=== PATIENT | female | born 1960 | race Caucasian/White ===

== ENCOUNTER → 2016-09-02 | Outpatient (CLI) | payer OTHER ==
[~2016-09-02] MED LIST: FLEXERIL5 MG PO; METFORMIN HCL500 MG PO; MOTRIN800 MG PO; TIZANIDINE HCL4 MG PO; TOLTERODINE TART4 M1 PO; VALIUM5 MG PO
[2016-09-02 14:12] LABS: HEMOGLOBIN A1c 5.6 % (4.8-5.6)
[2016-09-02 14:17] LABS: BUN 13 mg/dl (7-24); CARBON DIOXIDE 27 mmol/L (21-32); CHLORIDE 104 mmol/L (98-107); CHOLESTEROL 159 mg/dL (<200); EST GLOM FILT AFRICAN AMERICAN > 60 ml/min; GLUCOSE 106 mg/dL (65-99); HDL CHOLESTEROL 49 mg/dl (40-60); LDL CHOLESTEROL 76 mg/dL (9-159); POTASSIUM 4.5 mmol/L (3.5-5.1); SODIUM 138 mmol/L (136-145); TRIGLYCERIDES 171 mg/dl (<150); VLDL CHOLESTEROL 34 mg/dL (6-40)
== END | disposition home or self-care (01) ==
LOC: LAB 13:28
PROVIDERS: Family Medicine
DX: R73.09 Other abnormal glucose (principal); R79.9 Abnormal finding of blood chemistry, unspecified

== ENCOUNTER → 2017-06-22 | Outpatient (CLI) | payer OTHER ==
[2017-06-22 18:45] LABS: BUN 10 mg/dl (7-24); CHLORIDE 103 mmol/L (98-107); CREATININE 0.85 mg/dL (0.55-1.02); POTASSIUM 4.2 mmol/L (3.5-5.1); SODIUM 140 mmol/L (136-145)
== END | disposition home or self-care (01) ==
LOC: LAB 18:18
PROVIDERS: Family Medicine
DX: R73.09 Other abnormal glucose (principal)

== ENCOUNTER 2018-03-21 07:19 | Inpatient (IN) | payer OTHER ==
[~2018-03-21] VITALS: Ht 167.6 cm; Wt 101.7 kg
[2018-03-21] VITALS (7 sets, daily range): BP systolic 121–166; BP diastolic 66–84
--- NOTE | ~2018-03-21 | PR ---
[place], [place] PROGRESS NOTE NAME: MARTI TOTH UNIT #: [id number] ROOM: 517 DOCTOR: KRISSY OSWALD MD BIRTHDATE: [birth year] DOS: 03/25/2018 PULMONARY PROGRESS NOTE SUBJECTIVE: She has continued showing reduction of the respiratory symptoms of coughing, wheezing and shortness of breath. The oxygen requirement has been also noted gradually decreased. There are no symptoms of fever, chills, coughing or sputum expectoration. OBJECTIVE: VITAL SIGNS: Normal temperature, respiratory rate 18, heart rate 66, blood pressure of 160/88. The pulse oxygen saturation on 2 liters nasal cannula 96% saturation. HEENT: Examination shows head was atraumatic. Eyes: No icterus. NECK: Supple. CARDIOVASCULAR: S1, S2 is audible. LUNGS: The patient was noted without any wheeze or crackles at the present time. ABDOMEN: Soft, nontender. Bowel sounds present. EXTREMITIES: The patient without any acute edema. LABORATORY DATA: CBC today was essentially noted as normal. IMPRESSION: 1. The patient with progressive and gradual resolution of acute respiratory failure was noted at present time. 2. Acute bronchiolitis. 3. Acute exacerbation of bronchial asthma. PLAN OF MANAGEMENT: The patient could be considered home discharge if the oxygen saturation stays normal at room air. Outpatient followup could be made for further assessment and pulmonary status in future. Tobacco cessation counseling was done. [place], [place] PROGRESS NOTE NAME: MARTI TOTH UNIT #: [id number] ROOM: 517 DOCTOR: KRISSY OSWALD MD BIRTHDATE: [birth year] KRISSY DUFFY MD CM:PNTRANS [id number] KRISSY YANG MD 03/25/182019 interface
--- NOTE | ~2018-03-21 | EKG ---
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
--- NOTE | ~2018-03-21 | CON ---
[place], [place] REPORT OF CONSULTATION NAME: MARTI TOTH [facility] #: [id number] UNIT #: [id number] ROOM: 517 DOCTOR: CLIVE YANG MDKRISSY BIRTHDATE: [birth year] DOS: 03/22/2018 PULMONARY CONSULTATION, EVALUATION, AND MANAGEMENT REQUESTING PHYSICIAN: Hospitalist Service. REASON FOR CONSULTATION: Ongoing acute respiratory symptoms with abnormal CT scan of the chest findings. HISTORY OF PRESENT ILLNESS: This is a 57-year-old, white female patient, who has been noted with intermittent symptoms since November 2017. The patient has been treated at that time with antibiotic and steroids with reduction of respiratory symptoms, which has been improved, not completely resolved. Later on, the patient developed recent acute symptoms, which were noted progressively worse with chest congestion, coughing, and shortness of breath. The patient's symptoms have been noted progressively worsened. The patient came into the Emergency Room for assessment, noted pulse ox saturation of 85%. She has been started on oxygen supplementation and admitted to the hospital. CT scan of the chest was also done. She has reported reduction of the respiratory symptoms, but still noted ongoing cough, mostly nonproductive, with exertional shortness of breath and wheezing. There were no symptoms of chest pain or hemoptysis reported by the patient. REVIEW OF SYSTEMS: CONSTITUTIONAL: Fatigue and tiredness reported. Denies symptoms of fever or chills. EYES: Denies burning, redness, or tenderness. EARS, NOSE, THROAT: Denies sore throat, hoarseness, otalgia, postnasal drainage or epistaxis. CARDIOVASCULAR: Denies anginal pain, edema, or pain of the lower extremities. GASTROINTESTINAL: Denies dysphagia, nausea, vomiting, or diarrhea. History of chronic obesity without any dysphagia or abnormal weight loss. GENITOURINARY: Denies dysuria or urinary incontinence. MUSCULOSKELETAL: Denies acute joint pain, redness, or tenderness. SKIN: No lesions or rashes. Remaining systems were reviewed, they were noted all negative. PAST MEDICAL HISTORY: Reported as: 1. General anxiety disorder. 2. Essential hypertension. 3. Metabolic syndrome. 4. Prediabetes. 5. Chronic tobacco use. 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 Noted tobacco use, a pack of cigarettes per day, recently decreased the tobacco use to 5 cigarettes a day. Denies history of alcohol use or illicit drugs. [place], [place] REPORT OF CONSULTATION NAME: MARTI TOTH UNIT #: [id number] ROOM: 517 DOCTOR: KRISSY OSWALD MD BIRTHDATE: [birth year] FAMILY HISTORY: The patient's father from complication related to lung cancer at 60 years old. Mother is living at 75 years old with history of Parkinsonism. HOME MEDICATIONS: Listed as Colace, Lexapro, lisinopril, melatonin, metformin, and multivitamin. DRUG ALLERGIES: NOTED ALLERGIC TO: 1. IODINE. 2. PROCHLORPERAZINE. CURRENT MEDICATIONS: Current medications administered at this hospitalization were noted as use of Lovenox for DVT prophylaxis, Mucinex, Solu-Medrol 60 mg b.i.d., Lexapro, lisinopril, metformin, DuoNeb q. 4 hours, Zithromax and Rocephin. PHYSICAL EXAMINATION: GENERAL: A 57-year-old female, currently sitting on the bed without any acute distress. Height recorded as 5 feet 5 inches, weight 224 pounds, BMI 36. VITAL SIGNS: Normal temperature, respiratory rate 16-22, heart rate 67-92, blood pressure 121/84 to 148/71 recorded. Pulse ox saturation currently noted on 4 liters nasal cannula as 93% saturation. HEENT: Head was atraumatic. Eyes nonicterus. NECK: Supple. Chronic obesity findings. Decreased posterior pharyngeal space. High tongue base with crowding soft tissue structures. CARDIOVASCULAR: S1 and S2 audible. LUNGS: Moderate reduction in the breath sounds with mild faint expiratory wheezing. There were no crackles. ABDOMEN: Soft and obese. EXTREMITIES: The patient was noted without abnormal edema, clubbing or cyanosis. MUSCULOSKELETAL: Without any acute deformities. CENTRAL NERVOUS SYSTEM: Cranial nerves 2-12 intact. SKIN: Without lesions or rashes. LABORATORY AND DIAGNOSTIC DATA: CBC that was done on 03/21/2018, WBC count normal, hemoglobin 16.8, hematocrit 48, platelet count was normal. Lactic acid was 1.5 yesterday. PT and PTT yesterday were noted as normal. CMP done yesterday with normal BUN and creatinine, glucose 144. CBC this morning is noted as normal CBC. The BMP that was done yesterday, glucose 187, BUN and creatinine were normal. Chest x-ray one-view, which was done in the Emergency Room does not show any gross pulmonary infiltration or other abnormality. CT scan without contrast that was completed yesterday as well was reviewed, shows evidence of centrilobular nodules, tree-in-bud opacity noted predominantly in the right upper and the right lower lobe and some opacity noted in the left upper lobe as well. There was no abnormal lymphadenopathy. The mediastinal structure assessment is limited because of lack of IV contrast. IMPRESSION: 1. The patient has been currently admitted to the hospital. The patient seems [place], [place] REPORT OF CONSULTATION NAME: MARTI TOTH UNIT #: [id number] ROOM: 517 DOCTOR: KRISSY OSWALD MD BIRTHDATE: [birth year] to have acute exacerbation of chronic obstructive pulmonary disease or possible bronchial asthma exacerbation onset with acute bronchiolitis. Currently, tree-in-bud opacity is suggestive of pulmonary infection, whether viral or bacterial at this time is unknown. 2. The patient with acute hypoxic respiratory failure secondary to above. 3. Chronic long-term tobacco use. 4. Moderate obesity history as well. 5. History of essential hypertension. 6. General anxiety disorder. PLAN OF MANAGEMENT: Agree with use of the current antibiotic for atypical coverage with Zithromax. Continue Rocephin and steroids. Titrate oxygen supplementation to maintain pulse ox 92% or greater. Continue use of bronchodilators in nebulized formulation. Respiratory virus panel will be ordered as well. Monitor respiratory status closely. Followup CT scan of the chest would be advised after resolution of current symptoms in about 3 months to document the resolution of current pulmonary abnormality completely. Counseling about tobacco cessation was done with the patient as well. Other additional treatment changes will be requested based on progression of the illness. Nicotine replacement patches will be ordered in case of nicotine withdrawal. At this time, the patient states that she is comfortable and would not require any nicotine replacement therapy. Assessment and management discussed with Dr. Nicholas Neal as well today. Thank you for allowing me to participate in the care of this patient. KRISSY DUFFY MD CM:CONSTR:REPORT OF CONSULTATION 1509 03/30/18 1017 interface
--- NOTE | ~2018-03-21 | PR ---
[place], [place] PROGRESS NOTE NAME: MARTI TOTH UNIT #: [id number] ROOM: 517 DOCTOR: KRISSY OSWALD MD BIRTHDATE: [birth year] DOS: 03/23/2018 SUBJECTIVE: The patient reported reduction in symptoms of shortness of breath and cough for the last 24 hours. Denies wheezing. There were no symptoms of chest pain or hemoptysis. The patient denies symptoms of nausea, vomiting, diarrhea, abdominal pain, hematemesis, melena, or headache. Denies symptoms of pain of the lower extremity. Remaining of reviewed and they were noted all negative. OBJECTIVE: VITAL SIGNS: For the patient, which have been recorded showed the temperature noted as a normal. The respiratory rate recorded at 20, heart rate 65, blood pressure 135/53-140/53. Pulse oxygen saturation on nasal cannula was 95% saturation. HEENT: Examination shows head was atraumatic. Eyes nonicterus. NECK: Supple. CARDIOVASCULAR: S1, S2 audible. LUNGS: Without any crackles this morning. Wheezing was noted decreased, but not completely resolved. ABDOMEN: Soft and obese. EXTREMITIES: No acute edema. MUSCULOSKELETAL: Without acute deformities. Cranial nerves 2-12 intact. IMPRESSION: 1. Acute exacerbation of chronic obstructive pulmonary disease/bronchial asthma. 2. Acute bronchiolitis. 3. Chronic obesity. 4. Acute hypoxic respiratory failure secondary to acute exacerbation of chronic obstructive pulmonary disease/bronchial asthma. PLAN OF THERAPY: Change the Solu-Medrol dose 40 mg b.i.d. Titrate oxygen supplementation to maintain pulse oxygen saturation 92% or greater. Supportive therapy, plan of management. Upon further reduction in the next 24 to 48 hours. The patient may be considered for discharge. The oxygen desaturation needs to improve prior to consideration for home discharge. [place], [place] PROGRESS NOTE NAME: MARTI TOTH UNIT #: [id number] ROOM: 517 DOCTOR: KRISSY OSWALD MD BIRTHDATE: [birth year] KRISSY DUFFY MD CM:PNTRANS [id number] KRISSY YANG MD 03/23/18 1212 interface
--- NOTE | ~2018-03-21 | PR ---
[place], [place] PROGRESS NOTE NAME: MARTI TOTH UNIT #: [id number] ROOM: 517 DOCTOR: CLIVE YANG MD,KRISSY BIRTHDATE: [birth year] DOS: 03/26/2018 SUBJECTIVE: The patient noted comfortable at this time without any distress, has not been reported symptoms of fever or chills. The coughing, shortness breath, wheezing, and all other symptoms were resolving progressively. OBJECTIVE: VITAL SIGNS: For the patient which has been recorded shows a normal temperature, respiratory rate 20, heart rate 80, blood pressure 145/62. Pulse oxygen saturation recorded at rest on 3 liters nasal cannula 96% saturation. HEENT: Examination shows head was atraumatic. Eyes nonicterus. NECK: Supple. CARDIOVASCULAR: S1, S2 is audible. LUNGS: Noted without any crackles. There was no wheezing. ABDOMEN: Soft, nontender. Bowel sounds present. EXTREMITIES: Noted without any acute edema. IMPRESSION: Resolving acute hypoxic respiratory failure with acute exacerbation of chronic obstructive pulmonary disease and bronchiolitis. PLAN OF MANAGEMENT: No changes in the plan of care. At this time, the patient has been reassessed with the oxygen need and will be discharged home today. Tapering dose of prednisone, oral antibiotic and oxygen will be recommended. Outpatient followup to be assessed. Counseling about tobacco cessation for future was done. KRISSY DUFFY MD CM:PNYESSENIA [id number] KRISSY YANG MD 03/26/18 1519 interface
--- NOTE | ~2018-03-21 | PR ---
[place], [place] PROGRESS NOTE NAME: MARTI TOTH UNIT #: [id number] ROOM: 517 DOCTOR: CLIVE YANG MD,KRISSY BIRTHDATE: [birth year] DOS: 03/24/2018 PULMONARY PROGRESS NOTE SUBJECTIVE: She was still requiring oxygen supplementation, could not be weaned off from oxygen. Respiratory symptoms have been slowly resolving, but not completely resolved. There were no symptoms of chest pain, fever or chills. OBJECTIVE: VITAL SIGNS: For the patient, which have been recorded showed blood pressure 148/58, respiratory rate of 20, heart rate 77, temperature normal. HEENT: Examination shows head was atraumatic. Eyes nonicterus. NECK: Supple. CARDIOVASCULAR: S1, S2 is audible. LUNGS: The patient was noted with moderate expiratory wheezing, no crackles. ABDOMEN: Soft, nontender. Bowel sounds present. EXTREMITIES: No acute change. IMPRESSION: 1. Acute bronchiolitis with acute hypoxic respiratory failure. 2. Acute exacerbation of chronic obstructive pulmonary disease/bronchial asthma. PLAN OF MANAGEMENT: No changes in the plan of care at this time. Continue the steroids, bronchodilator therapy, plan of management as previously ordered. Continue oxygen supplementation, maintain pulse ox saturation 92% or greater. KRISSY DUFFY MD CM:PNTRANS [id number] KRISSY YANG MD 03/25/18 0028 interface
[~2018-03-21 07:19] MED LIST changes: +PREDNISONE50 MG PO; +PROAIR HFA8.5 GM INH
[2018-03-21 07:52] LABS: BASO # 0.1 10*3/uL (0.0-0.1); BASO % 0.7 % (0.0-1.0); EOS # 0.1 10*3/uL (0.0-0.4); EOS % 0.8 % (1.0-4.0); HEMATOCRIT 48.9 % (37.0-47.0); HEMOGLOBIN 16.8 g/dl (12.0-16.0); LYMPH # 1.2 10*3/uL (1.3-4.4); LYMPH % 13.2 % (27.0-41.0); MEAN CELL VOLUME 96.3 fl (81.0-99.0); MEAN CORPUSCULAR HGB 33.1 pg (27.0-31.0); MEAN CORPUSCULAR HGB CONC 34.4 g/dl (33.0-37.0); MEAN PLATELET VOLUME 9.4 fl (9.6-12.3); MONO % 11.4 % (3.0-9.0); NEUT # 6.6 10*3/uL (2.3-7.9); NEUT % 73.6 % (47.0-73.0); PLATELET COUNT AUTOMATED 247 10*3/uL (130-400); RED BLOOD COUNT 5.08 10*6/uL (4.10-5.10); RED CELL DISTRI WIDTH 12.8 % (0-14.5)
[2018-03-21 08:00] LABS: ACT PARTIAL THROMBO TIME 25.9 SECONDS (20.8-31.5)
[2018-03-21 08:07] LABS: ALBUMIN 3.5 gm/dl (3.1-4.5); ALKALINE PHOSPHATASE 91 U/L (45-117); BUN 9 mg/dl (7-24); CHLORIDE 101 mmol/L (98-107); CREATININE 0.87 mg/dL (0.55-1.02); LIPASE 247 U/L (73-393); POTASSIUM 3.7 mmol/L (3.5-5.1); SGOT/AST 24 IU/L (3-35); SGPT/ALT 37 U/L (12-78); SODIUM 136 mmol/L (136-145); TOTAL PROTEIN 7.3 gm/dL (6.4-8.2)
[2018-03-21 08:08] LABS: TROPONIN I < 0.015 ng/ml (<0.045)
--- NOTE | 2018-03-21 10:30 | NUR ---
A 57YO FEMALE, admitted to , under the services of NAV Rankin DO with a diagnosis of RESPIRATORY FAILURE/HYPOXIA/PNEUMONITIS. Chief complaint is SHORTNESS OF BREATH, PRODUCTIVE COUGH AND WHEEZING. Patient arrived via stretcher from ER. Monitor applied. Initial assessment completed. Vital signs taken and recorded. NAV RANKIN DO notified of admission to the unit. Orders received. See assessment for past medical history, medications and allergies. Patient and/or family oriented to unit. [facility] visitation policy reviewed. Clothing/patient valuable form completed. HENOK MATIAS
[2018-03-21] MEDS ORDERED: ZESTRIL10 MG PO (11:21)
[2018-03-21] MEDS ORDERED: MULTIVITAMINS1 EAC6 PO (11:22)
[2018-03-21] MEDS ORDERED: LEXAPRO10 MG PO (11:22)
[2018-03-21] MEDS ORDERED: MELATONIN10 M4 PO (11:23)
[2018-03-21] MEDS ORDERED: COLACE100 MG PO (11:23)
--- NOTE | 2018-03-21 11:23 | NUR ---
MED REC UPDATED USING INFORMATION PROVIDED BY THE PATIENT.
--- NOTE | 2018-03-21 11:44 | NUR ---
DR. DUFFY NOTIFIED OF CONSULT.
[2018-03-22] VITALS: BP 124/54
--- NOTE | 2018-03-22 05:13 | NUR ---
PT IS RESTING IN BED AT THIS TIME WITH NO S/S OF PAIN OR DISTRESS. RESPIRATIONS ARE EASY AND NONLABORED ON 4L NC. BED IS LOCKED AND IN THE LOWEST POSITION. CALL LIGHT IS WITHIN REACH. WILL CONTINUE TO MONITOR PT
[2018-03-22 06:25] LABS: BASO % 0.2 % (0.0-1.0); EOS % 0.2 % (1.0-4.0); HEMATOCRIT 46.9 % (37.0-47.0); HEMOGLOBIN 15.5 g/dl (12.0-16.0); LYMPH # 0.8 10*3/uL (1.3-4.4); LYMPH % 11.7 % (27.0-41.0); MEAN CORPUSCULAR HGB 33.3 pg (27.0-31.0); MEAN PLATELET VOLUME 9.6 fl (9.6-12.3); MONO # 0.4 10*3/uL (0.1-1.0); MONO % 5.6 % (3.0-9.0); NEUT # 5.4 10*3/uL (2.3-7.9); NEUT % 81.2 % (47.0-73.0); PLATELET COUNT AUTOMATED 243 10*3/uL (130-400); RED BLOOD COUNT 4.66 10*6/uL (4.10-5.10); WHITE BLOOD COUNT 6.6 10*3/uL (4.8-10.8)
[2018-03-22 06:35] LABS: BUN 9 mg/dl (7-24); CHLORIDE 107 mmol/L (98-107); POTASSIUM 4.5 mmol/L (3.5-5.1); SODIUM 141 mmol/L (136-145)
[2018-03-22 06:38] LABS: MEAN CELL VOLUME 100.6 fl (81.0-99.0)
[2018-03-22 06:48] LABS: CHOLESTEROL 111 mg/dL (<200); CREATININE 0.69 mg/dL (0.55-1.02); FREE T4 1.06 ng/dl (0.76-1.46); HDL CHOLESTEROL 34 mg/dl (40-60); LDL CHOLESTEROL 59 mg/dL (9-159); PHOSPHOROUS 3.4 mg/dL (2.5-4.9); THYROID STIM HORMONE (HS) 0.231 uIU/ml (0.358-4.75); TRIGLYCERIDES 91 mg/dl (<150); VLDL CHOLESTEROL 18 mg/dL (6-40)
[2018-03-22 08:00] VITALS: BP 132/48
[2018-03-22 08:04] LABS: VITAMIN D, 25-HYDROXY 38.1 ng/mL (30-100)
--- NOTE | 2018-03-22 09:23 | NUR ---
MEDICATED WITH PRN PO TYLENOL FOR CHEST DISCOMFORT D/T COUGHING.
--- NOTE | 2018-03-22 10:29 | NUR ---
PRN PO TYLENOL SOMEWHAT EFFECTIVE, PER PATIENT. HARSH COUGH REMAINS NON-PRODUCTIVE.
--- NOTE | 2018-03-22 11:20 | NUR ---
Interventional Cardiologist in to talk to patient. Patient states lives at [place] with . There are FEW steps in the home. Physician: [facility] Pharmacy: [facility] Home health services: NONE Patient's level of ADLs: INDEPENDENT Patient has working utilities: YES DME: NONE Follow-up physician's appointment after d/c: WILL BE MADE BY HOSPITALIST NURSE DIRECTOR ON DISCHARGE Does patient want to access PORTAL?: NO Discharge plan PT LIVES AT HOME WITH HER AND IS INDEPENDENT IN CARE. DENIES HOME NEEDS ON DISCHARGE. WILL HAVE RIDE HOME ON DISCHARGE. WILL CONTINUE TO FOLLOW.. SOLANGE TENORIO
--- NOTE | 2018-03-22 11:22 | NUR ---
EXTENSIONS FOR HR AND HOSPITALIST NURSE DIRECTOR TAKEN TO PT FOR FMLA PAPERS. PT STATES HER SISTER ALREADY GOT THEM YESTERDAY AND FAXED THEM TO [facility] IN [facility]. WILL CONTINUE TO FOLLOW.
[2018-03-22 12:00] VITALS: BP 132/48
[2018-03-22 16:00] VITALS: BP 153/68
--- NOTE | 2018-03-22 20:11 | NUR ---
Switched patient over to Aerogen vibrating mesh nebulizer. Pt states that she can feel a difference. Breath sounds much improved post treatment compared to normal jet nebulizer.
[2018-03-23] VITALS: BP 140/53
[2018-03-23 08:00] VITALS: BP 135/53
--- NOTE | 2018-03-23 09:33 | NUR ---
PT GIVEN NORCO AND TESSALON PERLES FOR BACK PAIN AND COUGH. WILL MONITOR FOR EFFECTIVENESS. CALL LIGHT IN REACH.
--- NOTE | 2018-03-23 10:44 | NUR ---
PRN MEDICATIONS EFFECTIVE PER PT.
[2018-03-23 12:20] VITALS: BP 137/44
[2018-03-23 15:46] VITALS: BP 170/68
--- NOTE | 2018-03-23 17:14 | NUR ---
PT GIVEN NORCO AND TESSALON PERLES FOR C/O GENERALIZED PAIN AND COUGH. WILL MONITOR FOR EFFECTIVENESS.
[2018-03-23 17:15] VITALS: BP 148/62
--- NOTE | 2018-03-23 18:14 | NUR ---
PRN MEDICATIONS EFFECTIVE PER PT.
[2018-03-23 20:00] VITALS: BP 158/58
[2018-03-24] VITALS: BP 149/50
--- NOTE | 2018-03-24 07:30 | NUR ---
REPORT RECEIVED FROM PM RN, REPORT GIVEN TO STUDENT NURSES AND INSTRUCTOR. STUDENTS AND INSTRUCTOR WILL ASSIST IN CARING FOR PT TODAY. PT AWARE.
[2018-03-24 08:01] VITALS: BP 138/58; BP 1388/58
--- NOTE | 2018-03-24 08:16 | NUR ---
VITAL SIGNS STABLE, A&OX3, EQUAL SINGLE STROKE PREFORMER, HEART SOUNDS NORMAL, SKIN WARM, DRY, PINK, LUNG SOUNDS DIMINISHED THROUGH OUT WITH RIGHT UPPER LOBE I&E WHEEZE, SPO2 94% ON 2L, NONPRODUCTIVE COUGH, BSX4, ABDOMIN SOFT NONTENDER NONDISTENDED, PATIENT ABLE TO AMBULATE ADLIB, MARTELL FRANCOIS SPNRCC
--- NOTE | 2018-03-24 10:28 | NUR ---
CONTINUES TO DENY HOME NEEDS. CAN BE DISCHARGED TO HOME WHEN MEDICALLY STABLE. WILL CONTINUE TO FOLLOW.
--- NOTE | 2018-03-24 11:03 | NUR ---
PATIENT RESTING COMFORTABLY IN CHAIR. ENCOURAGED TO USE INCENTIVE SPIROMETER, PATIENT COMPLIANT, NON PRODUCTIVE COUGH PRESENT, PATIENT TOLERATED WELL MARTELL SNYDER
--- NOTE | 2018-03-24 11:45 | NUR ---
PATIENT RESTING IN CHAIR LUNG. SOUNDS AUSCULTATED DIMINISHED THROUGH OUT WITH I&E WHEEZES NOTED THROUGH OUT. NON PRODUCTIVE COUGH PRESENT. NO C/O OF PAIN AT THIS TIME MARTELL JOSEPHCC
[2018-03-24 11:55] VITALS: BP 148/58
[2018-03-24 16:00] VITALS: BP 147/73
--- NOTE | 2018-03-24 17:41 | NUR ---
PT REQUESTS CURTIS ANDREWS FOR COUGH. MEDICATION ADMINISTERED. WILL MONITOR FOR EFFECTIVENESS. CALL LIGHT IN REACH.
[2018-03-24 20:00] VITALS: BP 135/58
[2018-03-25] VITALS: BP 133/50
[2018-03-25 06:42] LABS: BASO # 0.1 10*3/uL (0.0-0.1); BASO % 0.7 % (0.0-1.0); HEMOGLOBIN 16.1 g/dl (12.0-16.0); LYMPH # 1.5 10*3/uL (1.3-4.4); LYMPH % 14.5 % (27.0-41.0); MEAN CORPUSCULAR HGB 33.2 pg (27.0-31.0); MEAN CORPUSCULAR HGB CONC 33.5 g/dl (33.0-37.0); MEAN PLATELET VOLUME 9.2 fl (9.6-12.3); MONO # 0.6 10*3/uL (0.1-1.0); NEUT # 7.7 10*3/uL (2.3-7.9); NEUT % 76.4 % (47.0-73.0); PLATELET COUNT AUTOMATED 300 10*3/uL (130-400); RED BLOOD COUNT 4.85 10*6/uL (4.10-5.10); RED CELL DISTRI WIDTH 12.8 % (0-14.5); WHITE BLOOD COUNT 10.1 10*3/uL (4.8-10.8)
[2018-03-25 08:00] VITALS: BP 148/119; BP 160/88
[2018-03-25 08:30] VITALS: BP 160/88
--- NOTE | 2018-03-25 08:30 | NUR ---
Notified by PA that pt had elevated bp reading. I rechecked MBP and result of 160/88 obtained.
--- NOTE | 2018-03-25 11:09 | NUR ---
Medicated with norco per prn order for complaints of pain to back and ribs. Pt states that pain is 8/10 when she coughs. States she just had a coughing fit.
[2018-03-25 12:00] VITALS: BP 169/71
--- NOTE | 2018-03-25 12:10 | NUR ---
Pt states that norco was effective for pain.
--- NOTE | 2018-03-25 13:33 | NUR ---
Patient assessed for home O2. At rest on 2 l/m Spo2 93%, HR 76, BP 164/67. At rest with O2 off spo2 ranged from 89%-92%. During ambulation on room air Spo2 86%, HR ranged 102-108 patient required 4 l/m with ambulation to maintain an Spo2 >92%. Post ambulation vitals at rest on 2 l/m Spo2 92% HR 96 BP 147/67. Dr Guzman notified.
[2018-03-25 16:00] VITALS: BP 158/62
[2018-03-25 20:00] VITALS: BP 163/59
--- NOTE | 2018-03-25 22:27 | NUR ---
24 HR chart check completed.
--- NOTE | 2018-03-25 22:49 | NUR ---
PT C/O PAIN R/T COUGHING AND RESTLESSNESS. NORCO AND RESTORIL GIVEN AT THIS TIME. WILL MONITOR FOR EFFECTIVENESS. CALL LIGHT IN REACH.
--- NOTE | 2018-03-25 23:49 | NUR ---
NORJESUS AND RESTORIL EFFECTIVE PER PT.
[2018-03-26] VITALS: BP 149/78
[2018-03-26 08:00] VITALS: BP 145/62
[2018-03-26] MEDS ORDERED: LISINOPRIL20 MG PO (11:06)
[2018-03-26] MEDS ORDERED: MUCINEX ER600 MG PO (11:06)
[2018-03-26] MEDS ORDERED: PREDNISONE10 MG PO (11:06)
[2018-03-26] MEDS ORDERED: AVPAK AZITHROM250 MG PO (11:06)
--- NOTE | 2018-03-26 12:00 | NUR ---
HOME O2 ASSESSMENT: PRE BP: 145/62, HR 90, RR 18, PULSE OX 89% ON ROOM AIR AT REST. AMBULATED PATIENT APPROX 20 FT, PULSE OX DECREASED TO 86% ON ROOM AIR WHILE AMBULATING. PLACED PT ON 3 L/M, SAT >91%-92% WHILE AMBULATING. POST BP: 159/84, HR 91, RR 18, RN AND DR. GUTIERREZ NOTIFIED.
--- NOTE | 2018-03-26 15:00 | NUR ---
Discharge instructions reviewed with patient/family. Patient receptive and verbalizes understanding. Follow-up care arranged. Written instructions given to patient/family.SYDNEY PROVIDED PT WITH HOME O2 AND PT WAS D/C ON 3LNC WITH O2 TANK. ISAIAH ELIAS
[2018-03-27 14:10] LABS: ADENOVIRUS Negative (Negative); INFLUENZA A Negative (Negative); INFLUENZA B Negative (Negative); METAPNEUMOVIRUS Negative (Negative); PARAINFLUENZA 1 Negative (Negative); PARAINFLUENZA 2 Positive (Negative); PARAINFLUENZA 3 Negative (Negative); RHINOVIRUS Negative (Negative); RSV A Negative (Negative); RSV B Positive (Negative)
== END 2018-03-26 15:00 | disposition home or self-care (01) | DRG 871 ==
LOC: ED 07:19 → 5E 09:45 → EDHOLD 09:45 → 5E 09:57
PROVIDERS: Emergency Medicine; Internal Medicine; Internal Medicine Critical Care Medicine; ADMIT Internal Medicine
DX: A41.9 Sepsis, unspecified organism (principal); J18.9 Pneumonia, unspecified organism; J96.01 Acute respiratory failure with hypoxia; E44.0 Moderate protein-calorie malnutrition; J44.1 Chronic obstructive pulmonary disease with (acute) exacerbation; J45.901 Unspecified asthma with (acute) exacerbation; R65.20 Severe sepsis without septic shock; I10 Essential (primary) hypertension; E66.9 Obesity, unspecified; F41.1 Generalized anxiety disorder; F17.210 Nicotine dependence, cigarettes, uncomplicated; D75.1 Secondary polycythemia; E88.81 Metabolic syndrome and other insulin resistance; Z71.6 Tobacco abuse counseling; Z90.710 Acquired absence of both cervix and uterus; Z80.1 Family history of malignant neoplasm of trachea, bronchus and lung; Z83.3 Family history of diabetes mellitus; Z82.0 Family history of epilepsy and other diseases of the nervous system; Z88.8 Allergy status to other drugs, medicaments and biological substances; Z91.041 Radiographic dye allergy status; Z79.899 Other long term (current) drug therapy; Z68.36 Body mass index [BMI] 36.0-36.9, adult

== ENCOUNTER → 2018-05-02 | Outpatient (CLI) | payer OTHER ==
[~2018-05-02] MED LIST changes: +AVPAK AZITHROM250 MG PO; +BUSPAR5 MG PO; +COLACE100 MG PO; +COZAAR25 M1 PO; +CYCLOBENZAPRINE5 M3 PO; +CYMBALTA30 MG PO; +Ipratropium Brom3 ML NEB; +LEVAQUIN750 M1 PO; +LEXAPRO10 MG PO; +LISINOPRIL20 MG PO; +MELATONIN10 M4 PO; +MUCINEX ER600 MG PO; +MUCINEX1200 M1 PO; +MULTIVITAMINS1 EAC6 PO; +PREDNISONE10 MG PO; +ZESTRIL10 MG PO
--- NOTE | ~2018-05-02 | PF ---
[place], [place] PULMONARY FUNCTION TEST NAME: MARTI TOTH UNIT #: [id number] ROOM: DOCTOR: CLIVE YANG MD,KRISSY BIRTHDATE: [birth year] DOS: 05/02/2018 The test was ordered from office completed on 05/02/2018 HISTORY: The patient is a 57-year-old female, height of 66 inches, weight of 225 pounds. The patient reported symptoms of nonproductive cough, rare wheezing. DIAGNOSIS: Bronchial asthma. SPIROMETRY: The FVC is 2.52 liters, 73% predicted value, the FEV1 is of 2.02 liters, 75% predicted value. The ratio of FEV1/FVC 80%. Partial improvement noted post-bronchodilator, but did not meet the criteria of improvement ____ to be clinical significant improvement. Flow volume loop was suggestive of obstructive airway pattern. The lung volumes, thoracic gas volume recorded as 71%, residual volume of 102%. ERV noted 1% not accurate. There is total lung capacity 86%. The patient's lung diffusion 77%. The patient's airway resistance and passive conductance normal. FINAL IMPRESSION: Mild obstructive lung disease was noted, otherwise normal pulmonary function test. Clinical correlation would be advised. KRISSY DUFFY MD CM:PFREPORT:PULMONARY FUNCTION TEST [id number] KRISSY YANG MD
== END | disposition home or self-care (01) ==
LOC: CT 12:24
DX: R05 Cough (principal); R91.8 Other nonspecific abnormal finding of lung field

== ENCOUNTER → 2018-08-21 | Outpatient (CLI) | payer OTHER | END | disposition home or self-care (01) | LOC: RAD 14:15 | DX: R06.02 Shortness of breath (principal); R05 Cough; F17.200 Nicotine dependence, unspecified, uncomplicated ==

== ENCOUNTER 2018-08-24 15:01 | Inpatient (IN) | payer OTHER ==
[~2018-08-24] VITALS: Ht 167.6 cm; Wt 100.9 kg
--- NOTE | ~2018-08-24 | EKG ---
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
--- NOTE | ~2018-08-24 | PR ---
[place], [place] PROGRESS NOTE [id number] UNIT #: [id number] ROOM: 501 DOCTOR: CLIVE YANG MD,KRISSY BIRTHDATE: [birth year] DOS: 08/27/2018 SUBJECTIVE: She has reported further improvement in respiratory symptoms with reduction of the cough, shortness of breath, and wheezing. There were no symptoms of chest pain, did not require any oxygen supplementation more than 1 liter nasal cannula in the last 24 hours. Denies symptoms of chest pain or hemoptysis. OBJECTIVE: GENERAL: The patient is currently sitting comfortably on the chair this morning of assessment. VITAL SIGNS: Normal temperature, respiratory rate 20, heart rate 77, blood pressure 141/60. Pulse oxygen saturation on room air 94% saturation. HEENT: Examination shows head was atraumatic. Eyes nonicterus. NECK: Supple. CARDIOVASCULAR: S1, S2 audible. LUNGS: Clear to auscultation bilaterally. ABDOMEN: Soft, nontender. Bowel sounds present. EXTREMITIES: No new change. IMPRESSION: Progressive resolution of acute hypoxic respiratory failure, acute exacerbation of bronchial asthma, and bronchitis. PLAN OF TREATMENT: Discharge the patient on tapering prednisone and oral antibiotics. Continue other previous medications. The patient would not require any oxygen supplementation. KRISSY DUFFY MD CM:PNTRANS [id number] KRISSY YANG MD 08/27/182115 interface
--- NOTE | ~2018-08-24 | PR ---
[place], [place] PROGRESS NOTE NAME: MARTI TOTH UNIT #: [id number] ROOM: 501 DOCTOR: CLIVE YANG MD,KRISSY BIRTHDATE: [birth year] DOS: 08/26/2018 SUBJECTIVE: The patient noted comfortable, reported increased coughing, but started expectorating sputum. Shortness of breath and wheezing were resolving. There were no symptoms of chest pain, fever or chills. The oxygen supplementation decreased to 1 liter nasal cannula. PHYSICAL EXAMINATION: VITAL SIGNS: Normal temperature, respiratory rate 20, heart rate 69, blood pressure 104/56. The pulse oxygen saturation 96% on 1 liter nasal cannula. HEENT: Chronic obesity. Head was atraumatic. Eyes nonicterus. NECK: Supple. CARDIOVASCULAR: S1, S2 audible. LUNGS: The patient with decreased breath sounds. mild expiratory wheezing, no crackles. Improvement in air entry was noted. ABDOMEN: Soft, obese, nontender. Bowel sounds present. EXTREMITIES: No new change. IMPRESSION: 1. Stable respiratory status with favorable improvement, acute hypoxic respiratory failure, acute exacerbation of bronchial asthma. 1. Chronic obesity. PLAN OF MANAGEMENT: Continuation of current plan of care at this time with the use of corticosteroids, bronchodilators potential home discharge in the morning would be considered. Continue to titrate the oxygen supplementation, maintain pulse oxygen saturation 92% or greater. KRISSY DUFFY MD CM:PNTRANS [id number] KRISSY YANG MD 08/26/182048 interface
--- NOTE | ~2018-08-24 | EKG ---
[place], [place] ELECTROCARDIOGRAM REPORT NAME: MARTI TOTH UNIT #: [id number] ROOM: [facility] DOCTOR: ROGELIO DRAFT REPORT BIRTHDATE: [birth year] [facility] Test Date: 2018-08-24 Test Time: 20:49:43 Pat Name: MARTI TOTH Department: Room: [facility] Gender: F Choke Reamer: Chandrika Andre : 1960 Requested By: GREGORIA LANE Order Number: [id number] Reading MD: Loretta Esteves Measurements Intervals [place] Rate: 92 P: 51 OK: 210 QRS: 4 QRSD: 91 T: 98 QT: 341 QTc: 422 Interpretive Statements Sinus rhythm Prolonged OK interval Abnormal R-wave progression, late transition Inferior infarct, old Compared to ECG 03/21/2018 07:42:40 First degree AV block now present Myocardial infarct finding now present Ventricular premature complex(es) no longer present Prolonged QT interval no longer present Electronically Signed On 08-25-2018 10:14:43 PDT by Loretta Esteves CM:EKGRPT:ELECTROCARDIOGRAM REPORT [id number] GREGORIA PEREZ DRAFT REPORT GREGORIA LANE DO
--- NOTE | ~2018-08-24 | EKG ---
[place], [place] ELECTROCARDIOGRAM REPORT NAME: MARTI TOTH UNIT #: [id number] ROOM: [facility] DOCTOR: ROGELIO DRAFT REPORT BIRTHDATE: [birth year] [facility] Test Date: 2018-08-24 Test Time: 15:00:19 Pat Name: MARTI TOTH Department: Room: [facility] Gender: F Microphone Boom Operator: : 1960 Requested By: GREGORIA LANE Order Number: [id number] Reading MD: Jordin Hoang MD Measurements Intervals [place] Rate: 89 P: 61 MO: 193 QRS: 12 QRSD: 89 T: 115 QT: 447 QTc: 544 Interpretive Statements Sinus rhythm Prolonged QT interval Compared to ECG 03/21/2018 07:42:40 Electronically Signed On 08-25-2018 8:39:02 PDT by Jordin Hoang MD CM:EKGRPT:ELECTROCARDIOGRAM REPORT [id number] GREGORIA PEREZ DRAFT REPORT GREGORIA LANE DO
--- NOTE | ~2018-08-24 | CON ---
[place], [place] REPORT OF CONSULTATION NAME: MARTI TOTH [facility] #: [id number] UNIT #: [id number] ROOM: 501 DOCTOR: KRISSY OSWALD MD BIRTHDATE: [birth year] DOS: 08/25/2018 PULMONARY CONSULTATION, EVALUATION, AND MANAGEMENT REQUESTED BY: Hospitalist service. REASON FOR CONSULTATION: For the assessment of current acute hypoxia with respiratory failure and other respiratory symptoms. HISTORY OF PRESENT ILLNESS: This is a 57-year-old white female patient known to me from previously. She has been treated previously for acute respiratory failure, interstitial edema, pneumonitis on previous admission in 03/2018. She was noted in usual state of health without any acute symptoms. The patient [facility]. She started having increased coughing with only a scant amount of sputum expectoration. The symptoms of shortness of breath were associated with that, but the cough has been noted progressive worsening with chest congestion. She was seen in the resident clinic. The patient's chest x-ray was done that was noted as negative. The patient denies any symptoms of chest pain with that. The coughing has been still noted as moderate to severe, mostly nonproductive. Denies symptoms of hemoptysis with those symptoms. She does have symptoms of wheezing. She was noted with oxygen desaturation, was started on oxygen supplementation for further medical management, with resolution of previous hypoxic respiratory failure noted and she was not requiring any oxygen supplementation. REVIEW OF SYSTEMS: CONSTITUTIONAL SYMPTOMS: Fatigue and tiredness reported. No symptoms of fever or chills. EYES: Denies burning, redness, or tenderness. EARS, NOSE, THROAT SYMPTOMS: Denies sore throat, hoarseness, otalgia, postnasal drainage, or epistaxis. CARDIOVASCULAR: Denies anginal pain, edema, or pain of the lower extremities. GASTROINTESTINAL: Denies any dysphagia, nausea, vomiting, diarrhea, abdominal pain, hematemesis, melena, or hematochezia. SKIN: Denies abnormal lesions or rashes. MUSCULOSKELETAL: No acute joint pain, redness, tenderness or deformities. CENTRAL NERVOUS SYSTEM: Denies diplopia or syncopal episode. Remaining systems were reviewed with the patient, they were noted all negative. PAST MEDICAL HISTORY: 1. The patient has a history of bronchial asthma noted mild intermittent, treated with the bronchodilator p.r.n. use. 2. The patient with a past history of acute hypoxic respiratory failure in 03/2018, which was resolved. 3. Chronic obesity. 4. Previous history of nicotine dependence, which was also discontinued by the patient and not smoking cigarettes at the present time. 5. General anxiety disorder. 6. Essential hypertension. [place], [place] REPORT OF CONSULTATION NAME: MARTI TOTH UNIT #: [id number] ROOM: [facility] DOCTOR: GUCCI OSWALD MDM BIRTHDATE: [birth year] 7. History of metabolic syndrome. 8. History of prediabetes mellitus. PAST SURGICAL HISTORY: No major surgeries. 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 She has been noted with tobacco use at a younger age, later on decreased to quarter pack of cigarettes per day and it had been completely discontinued since March 2018. FAMILY HISTORY: The patient's father of complication of lung cancer at 60 years old. Mother living, 75 years old with history of Parkinsonism. MEDICATIONS: Home medications listed as use of ProAir HFA inhaler, BuSpar, Flexeril, Cymbalta, Mucinex, Cozaar, melatonin, and metformin. Current medications administered were noted as losartan, Cymbalta, Lovenox for DVT prophylaxis, Protonix, Solu-Medrol 40 mg b.i.d., Mucinex, Flexeril, DuoNeb q.4h., Buspar, Levaquin, temazepam, morphine and some other p.r.n. medications. ALLERGIES: Noted as allergy to: 1. IVP DYE CAUSING HYPERTENSION. 2. COMPAZINE. PHYSICAL EXAMINATION: GENERAL: This is a 57-year-old female patient, currently noted to be awake and alert without any distress this morning of assessment. Height recorded by the nursing staff at the current admission as 5 feet 6 inches, weight of 100 kilogram, BMI 39.9. She was sitting on the chair. VITAL SIGNS: Normal temperature, respiratory rate recorded as 28 at admission, currently noted 18, heart 69-88, blood pressure 130/70-136/60. Pulse oxygen saturation on room air was 87% saturation on 4 liters nasal cannula 93%, later on 2 liters nasal cannula 92% on this morning, assessed the patient on room air for a few minutes and pulse ox saturation recorded was 89-90% at rest. HEENT: Chronic obesity. Head was atraumatic, nonicteric. Decreased posterior pharyngeal space. CARDIOVASCULAR: S1, S2 audible. LUNGS: Decreased breath sounds bilaterally with expiratory wheezing. No crackles. ABDOMEN: Soft and obese. EXTREMITIES: Without edema. MUSCULOSKELETAL: Without acute deformities. SKIN: Visible skin, no lesions or rashes. CENTRAL NERVOUS SYSTEM: Intact. LABORATORY DATA: CBC, WBC count 9.8, hemoglobin 16.7, platelet count was normal. CMP that was done on 08/24/2018, normal BUN and creatinine. LFTs normal. Troponin normal. Lactic acid normal on 08/24/2018. CBC from this morning, WBC count normal, hemoglobin 16.7, hematocrit 49.9, platelet count normal. CMP from this morning, normal BUN and creatinine. Glucose 197. The PT, PTT was noted as normal. Troponin additional sets was done yesterday, all noted negative. [place], [place] REPORT OF CONSULTATION NAME: MARTI TOTH UNIT #: [id number] ROOM: [facility] DOCTOR: CLIVE YANG MD,KRISSY BIRTHDATE: [birth year] DIAGNOSTIC STUDIES: The chest x-ray one view was noted free of any acute pulmonary infiltration. IMPRESSION: 1. Acute hypoxemic respiratory failure as a result of acute exacerbation of bronchial asthma. 2. Chronic obesity. 3. Rule out obstructive sleep apnea disorder as well. 4. The patient with moderate obesity. 5. History of general anxiety and depression. 6. Type 2 diabetes mellitus. PLAN OF TREATMENT: Continue oxygen supplementation. Continue Solu-Medrol at current dose and bronchodilators every 4 hours. Titrate off the oxygen with improvement in oxygenation. Bronchodilator, therapy plan of management, additional treatment changes will be ordered based on the progression of illness. Usual care, plan of management and care. Thanks for allowing me to participate in the care of this patient. KRISSY DUFFY MD CM:CONSTR:REPORT OF CONSULTATION 1118 08/25/18 [id number] interface
[~2018-08-24 15:01] MED LIST changes: -BUSPAR5 MG PO; -COZAAR25 M1 PO; -CYCLOBENZAPRINE5 M3 PO; -CYMBALTA30 MG PO; -Ipratropium Brom3 ML NEB; -LEVAQUIN750 M1 PO; -MUCINEX1200 M1 PO
[2018-08-24 15:06] VITALS: BP 138/72
[2018-08-24 15:28] LABS: BASO # 0.1 10*3/uL (0.0-0.1); BASO % 0.8 % (0.0-1.0); EOS # 0.8 10*3/uL (0.0-0.4); HEMATOCRIT 50.7 % (37.0-47.0); HEMOGLOBIN 16.7 g/dl (12.0-16.0); LYMPH # 0.9 10*3/uL (1.3-4.4); LYMPH % 9.5 % (27.0-41.0); MEAN CELL VOLUME 98.8 fl (81.0-99.0); MEAN CORPUSCULAR HGB 32.6 pg (27.0-31.0); MEAN CORPUSCULAR HGB CONC 32.9 g/dl (33.0-37.0); MEAN PLATELET VOLUME 9.1 fl (9.6-12.3); MONO # 0.9 10*3/uL (0.1-1.0); MONO % 8.8 % (3.0-9.0); NEUT # 7.1 10*3/uL (2.3-7.9); NEUT % 72.5 % (47.0-73.0); PLATELET COUNT AUTOMATED 257 10*3/uL (130-400); RED BLOOD COUNT 5.13 10*6/uL (4.10-5.10); RED CELL DISTRI WIDTH 11.9 % (0-14.5); WHITE BLOOD COUNT 9.8 10*3/uL (4.8-10.8)
[2018-08-24 15:39] LABS: ACT PARTIAL THROMBO TIME 26.7 SECONDS (20.0-32.1); INTERNATIONAL NORM RATIO 0.9 (2.0-3.5)
[2018-08-24 15:43] VITALS: BP 132/65
[2018-08-24 15:46] LABS: ALBUMIN 3.6 gm/dl (3.1-4.5); ALKALINE PHOSPHATASE 78 U/L (45-117); BUN 11 mg/dl (7-24); CHLORIDE 100 mmol/L (98-107); CREATININE 0.75 mg/dL (0.55-1.02); SGOT/AST 15 IU/L (3-35); SGPT/ALT 33 U/L (12-78); SODIUM 137 mmol/L (136-145); TOTAL PROTEIN 7.3 gm/dL (6.4-8.2)
[2018-08-24 15:47] LABS: TROPONIN I < 0.015 ng/ml (<0.045)
[2018-08-24 16:45] VITALS: BP 147/67
[2018-08-24 17:11] VITALS: BP 135/43
[2018-08-24 17:20] VITALS: BP 156/86
--- NOTE | 2018-08-24 17:20 | NUR ---
A 57, admitted to 5E, under the services of MARK Townsend DO with a diagnosis of PNEUMONIA. Chief complaint is SOB, COUGH. Patient arrived via from ER. Monitor applied. Initial assessment completed. Vital signs taken and recorded. MARK TOWNSEND DO notified of admission to the unit. Orders received. See assessment for past medical history, medications and allergies. Patient and/or family oriented to unit. [facility] visitation policy reviewed. Clothing/patient valuable form completed. CAMMIE CARNEY
[2018-08-24] MEDS ORDERED: CYMBALTA30 MG PO (17:31)
[2018-08-24] MEDS ORDERED: CYCLOBENZAPRINE5 M3 PO (17:31)
[2018-08-24] MEDS ORDERED: COZAAR25 M1 PO (17:32)
[2018-08-24] MEDS ORDERED: PROAIR HFA8.5 GM INH (17:34)
[2018-08-24] MEDS ORDERED: BUSPAR5 MG PO (17:34)
[2018-08-24] MEDS ORDERED: MUCINEX1200 M1 PO (17:34)
--- NOTE | 2018-08-24 17:35 | NUR ---
MED REC UPDATED WITH PT AT THIS TIME.
--- NOTE | 2018-08-24 17:45 | NUR ---
DR BENOIT MADE AWARE OF UPDATED MED REC.
--- NOTE | 2018-08-24 18:00 | NUR ---
DR DUFFY NOTIFIED OF NEW CONSULT.
[2018-08-24 20:00] VITALS: BP 151/68
--- NOTE | 2018-08-24 22:40 | NUR ---
PT INSTRUCTED ON USE OF FLUTTER VALUE. PT PERFORMED FLUTTER WITH ACCURATE TECHNIQUE. INSTRUCTED TO PERFORM Q1HR. PT TOLERATED WELL.
[2018-08-25] VITALS: BP 157/57
[2018-08-25 06:30] LABS: BASO % 0.3 % (0.0-1.0); EOS % 0.1 % (1.0-4.0); HEMATOCRIT 49.9 % (37.0-47.0); HEMOGLOBIN 16.7 g/dl (12.0-16.0); LYMPH # 0.5 10*3/uL (1.3-4.4); LYMPH % 7.1 % (27.0-41.0); MEAN CELL VOLUME 97.5 fl (81.0-99.0); MEAN CORPUSCULAR HGB 32.6 pg (27.0-31.0); MEAN CORPUSCULAR HGB CONC 33.5 g/dl (33.0-37.0); MEAN PLATELET VOLUME 9.2 fl (9.6-12.3); MONO # 0.3 10*3/uL (0.1-1.0); MONO % 3.9 % (3.0-9.0); NEUT # 6.3 10*3/uL (2.3-7.9); NEUT % 87.5 % (47.0-73.0); PLATELET COUNT AUTOMATED 270 10*3/uL (130-400); RED BLOOD COUNT 5.12 10*6/uL (4.10-5.10); RED CELL DISTRI WIDTH 11.7 % (0-14.5); WHITE BLOOD COUNT 7.2 10*3/uL (4.8-10.8)
[2018-08-25 07:02] LABS: ALBUMIN 3.4 gm/dl (3.1-4.5); ALKALINE PHOSPHATASE 75 U/L (45-117); BUN 10 mg/dl (7-24); CHLORIDE 102 mmol/L (98-107); CHOLESTEROL 172 mg/dL (<200); CREATININE 0.74 mg/dL (0.55-1.02); HDL CHOLESTEROL 43 mg/dl (40-60); LDL CHOLESTEROL 108 mg/dL (9-159); PHOSPHOROUS 2.9 mg/dL (2.5-4.9); POTASSIUM 3.9 mmol/L (3.5-5.1); SGOT/AST 13 IU/L (3-35); SGPT/ALT 36 U/L (12-78); SODIUM 139 mmol/L (136-145); TOTAL PROTEIN 7.1 gm/dL (6.4-8.2); TRIGLYCERIDES 103 mg/dl (<150); VLDL CHOLESTEROL 21 mg/dL (6-40)
[2018-08-25 07:09] LABS: ACT PARTIAL THROMBO TIME 27.9 SECONDS (20.0-32.1); INTERNATIONAL NORM RATIO 0.9 (2.0-3.5)
[2018-08-25 07:49] LABS: VITAMIN D, 25-HYDROXY 31.3 ng/mL (30-100)
[2018-08-25 08:00] VITALS: BP 136/60
--- NOTE | 2018-08-25 09:00 | NUR ---
Air Tester in to talk to patient. Patient states lives at home with her . There are 12 steps in the home. Physician: Dr. Molina in the resident clinic Pharmacy: [facility] Home health services: none Patient's level of ADLs: INDEPENDENT Patient has working utilities: yes DME: none Follow-up physician's appointment after d/c: will be made by the hospitalist nurse director upon discharge Does patient want to access PORTAL?: no Discharge plan discussed with patient. She lives at home with her . She is independent in her ADLs and ambulation. Discussed home health care services and she denies any home needs at this time. When medically stable she will be discharged to home. Her will transport on discharge. IGNACIO WU
--- NOTE | 2018-08-25 09:58 | NUR ---
MEDICATED WITH NORCO PER PRN ORDER FOR COMPLAINTS OF RIB AND HEADACHE PAIN. WILL MONITOR FOR EFFECTIVENESS.
--- NOTE | 2018-08-25 10:30 | NUR ---
PT STATES EARLIER NORCO EFFECTIVE FOR PAIN RELIEF.
[2018-08-25 12:00] VITALS: BP 142/57
[2018-08-25 16:00] VITALS: BP 154/59
--- NOTE | 2018-08-25 19:51 | NUR ---
PATIENT MEDICATED WITH FLEXERIL PER DRS ORDERS FOR COMPLAINTS OF LEG PAIN WELL BACK PAIN FROM COUGHING. RN WILL MONITOR FOR RELIEF OF SYMPTOMS
[2018-08-25 20:00] VITALS: BP 113/45
--- NOTE | 2018-08-25 20:35 | NUR ---
PATIENT STATES EARLIER MEDICATION WAS EFFECTIVE.
[2018-08-26] VITALS: BP 124/44
--- NOTE | 2018-08-26 04:56 | NUR ---
PATIENT RESTING IN BED WITH EYES CLOSED, APPEARS TO BE SLEEPING AT THIS TIME.NO SIGNS OR SYMPTOMS OF DISTRESS SEEN, RESPIRATIONS ARE QUIET AND UNLABORED ON 1LNC. CALL LIGHT IS WITHIN REACH. RN WILL CONTINUE TO MONITOR
[2018-08-26 08:00] VITALS: BP 104/56; BP 116/72
--- NOTE | 2018-08-26 09:08 | NUR ---
FLEXERIL GIVEN FOR C/O GEN. DISCOMFORT. WILL MONITOR.
--- NOTE | 2018-08-26 10:00 | NUR ---
FLEXERIL HELPING PER PT. WILL CONTINUE TO MONITOR.
--- NOTE | 2018-08-26 10:49 | NUR ---
NORCO GIVEN FOR C/O GEN. DISCOMFORT. WILL MONITOR.
--- NOTE | 2018-08-26 11:50 | NUR ---
DARYL EFFECTIVE PER PT.
[2018-08-26 12:00] VITALS: BP 142/58
[2018-08-26 16:00] VITALS: BP 159/62
[2018-08-26 20:00] VITALS: BP 168/52
[2018-08-27] VITALS: BP 132/52
--- NOTE | 2018-08-27 07:53 | NUR ---
FLEXERIL GIVEN FOR C/O GEN. DISCOMFORT. WILL MONITOR.
[2018-08-27 08:00] VITALS: BP 141/60
--- NOTE | 2018-08-27 09:00 | NUR ---
FLEXERIL EFFECTIVE PER PT.
[2018-08-27] MEDS ORDERED: Ipratropium Brom3 ML NEB (09:49)
[2018-08-27] MEDS ORDERED: PREDNISONE10 MG PO (09:49)
[2018-08-27] MEDS ORDERED: LEVAQUIN750 M1 PO (09:49)
--- NOTE | 2018-08-27 10:22 | NUR ---
MSDIS Discharge instructions reviewed with patient/family. Patient receptive and verbalizes understanding. Follow-up care arranged. Written instructions given to patient/family. KITTY STARK
== END 2018-08-27 10:22 | disposition home or self-care (01) | DRG 193 ==
LOC: ED 15:01 → 5E 16:18 → EDHOLD 16:18 → 5E 17:06
PROVIDERS: Emergency Medicine; Hospitalist; ADMIT Family Medicine
DX: J18.9 Pneumonia, unspecified organism (principal); J96.01 Acute respiratory failure with hypoxia; J45.21 Mild intermittent asthma with (acute) exacerbation; J20.9 Acute bronchitis, unspecified; I10 Essential (primary) hypertension; M79.7 Fibromyalgia; E88.81 Metabolic syndrome and other insulin resistance; D75.1 Secondary polycythemia; F32.9 Major depressive disorder, single episode, unspecified; E11.65 Type 2 diabetes mellitus with hyperglycemia; F41.1 Generalized anxiety disorder; E66.9 Obesity, unspecified; F17.210 Nicotine dependence, cigarettes, uncomplicated; R79.82 Elevated C-reactive protein (CRP); F41.9 Anxiety disorder, unspecified; Z90.710 Acquired absence of both cervix and uterus; Z80.1 Family history of malignant neoplasm of trachea, bronchus and lung; Z83.3 Family history of diabetes mellitus; Z82.0 Family history of epilepsy and other diseases of the nervous system; Z88.8 Allergy status to other drugs, medicaments and biological substances; Z91.041 Radiographic dye allergy status; Z79.899 Other long term (current) drug therapy; Z68.35 Body mass index [BMI] 35.0-35.9, adult

== ENCOUNTER → 2018-12-27 | Outpatient (CLI) | payer OTHER ==
[~2018-12-27] MED LIST changes: +BUSPAR5 MG PO; +COZAAR25 M1 PO; +CYCLOBENZAPRINE5 M3 PO; +CYMBALTA30 MG PO; +Ipratropium Brom3 ML NEB; +LEVAQUIN750 M1 PO; +MUCINEX1200 M1 PO
[2018-12-27 08:10] LABS: BASO # 0.1 10*3/uL (0.0-0.1); BASO % 0.6 % (0.0-1.0); EOS # 0.2 10*3/uL (0.0-0.4); EOS % 2.3 % (1.0-4.0); HEMOGLOBIN 17.5 g/dl (12.0-16.0); LYMPH # 2.6 10*3/uL (1.3-4.4); LYMPH % 26.9 % (27.0-41.0); MEAN CELL VOLUME 99.6 fl (81.0-99.0); MEAN CORPUSCULAR HGB 33.5 pg (27.0-31.0); MEAN CORPUSCULAR HGB CONC 33.7 g/dl (33.0-37.0); MEAN PLATELET VOLUME 9.4 fl (9.6-12.3); MONO # 0.8 10*3/uL (0.1-1.0); MONO % 8.7 % (3.0-9.0); NEUT # 5.9 10*3/uL (2.3-7.9); PLATELET COUNT AUTOMATED 325 10*3/uL (130-400); RED BLOOD COUNT 5.22 10*6/uL (4.10-5.10); WHITE BLOOD COUNT 9.7 10*3/uL (4.8-10.8)
[2018-12-27 08:39] LABS: ALBUMIN 3.7 gm/dl (3.1-4.5); ALKALINE PHOSPHATASE 85 U/L (45-117); BUN 14 mg/dl (7-24); CHLORIDE 98 mmol/L (98-107); CHOLESTEROL 144 mg/dL (<200); CREATININE 0.97 mg/dL (0.55-1.02); FREE T4 1.07 ng/dl (0.76-1.46); HDL CHOLESTEROL 34 mg/dl (40-60); SGOT/AST 18 IU/L (3-35); SGPT/ALT 44 U/L (12-78); SODIUM 135 mmol/L (136-145); TOTAL PROTEIN 7.1 gm/dL (6.4-8.2)
[2018-12-27 08:44] LABS: LDL CHOLESTEROL 63 mg/dL (9-159); TRIGLYCERIDES 237 mg/dl (<150); VLDL CHOLESTEROL 47 mg/dL (6-40)
== END | disposition home or self-care (01) ==
LOC: LAB 07:45
PROVIDERS: Family Medicine
DX: E11.9 Type 2 diabetes mellitus without complications (principal); F41.9 Anxiety disorder, unspecified

== ENCOUNTER 2019-03-21 02:34 | Emergency (ER) | payer OTHER ==
[~2019-03-21] VITALS: Ht 167.6 cm; Wt 99.8 kg
[2019-03-21 02:37] VITALS: BP 140/86
[2019-03-21] MEDS ORDERED: PREDNISONE20 M1 PO (03:08)
== END 2019-03-21 03:10 | disposition home or self-care (01) ==
LOC: ED 02:34
DX: G51.0 Bell's palsy (principal); I10 Essential (primary) hypertension; M79.7 Fibromyalgia; F17.200 Nicotine dependence, unspecified, uncomplicated; Z91.041 Radiographic dye allergy status; Z88.8 Allergy status to other drugs, medicaments and biological substances; Z79.2 Long term (current) use of antibiotics; Z90.710 Acquired absence of both cervix and uterus

== ENCOUNTER → 2020-01-24 | Outpatient (CLI) | payer OTHER ==
[~2020-01-24] MED LIST changes: +PREDNISONE20 M1 PO
[2020-01-24 13:19] LABS: BUN 11 mg/dl (7-24); CHLORIDE 103 mmol/L (98-107); HDL CHOLESTEROL 33 mg/dl (40-60); POTASSIUM 3.8 mmol/L (3.5-5.1); SODIUM 140 mmol/L (136-145)
[2020-01-24 13:32] LABS: CHOLESTEROL 79 mg/dL (<200); LDL CHOLESTEROL 2 mg/dL (9-159); TRIGLYCERIDES 218 mg/dl (<150); VLDL CHOLESTEROL 44 mg/dL (6-40)
== END | disposition home or self-care (01) ==
LOC: LAB 12:21
PROVIDERS: ATTEND Family Medicine
DX: E78.2 Mixed hyperlipidemia (principal); R73.9 Hyperglycemia, unspecified

== ENCOUNTER → 2021-01-28 | Outpatient (CLI) | payer OTHER ==
[2021-01-28 19:14] LABS: BUN 14 mg/dl (7-24); CHLORIDE 103 mmol/L (98-107); CHOLESTEROL 104 mg/dL (<200); LDL CHOLESTEROL 15 mg/dL (9-159); POTASSIUM 3.9 mmol/L (3.5-5.1); SODIUM 138 mmol/L (136-145); TRIGLYCERIDES 263 mg/dl (<150)
== END | disposition home or self-care (01) ==
LOC: LAB 18:22
PROVIDERS: ATTEND Family Medicine
DX: E11.9 Type 2 diabetes mellitus without complications (principal); E78.2 Mixed hyperlipidemia

== ENCOUNTER → 2021-06-15 | Outpatient (CLI) | payer OTHER | END | disposition home or self-care (01) | LOC: RESCLI 01:48 | PROVIDERS: ATTEND Internal Medicine Nephrology | DX: R30.0 Dysuria (principal); E11.9 Type 2 diabetes mellitus without complications; M62.08 Separation of muscle (nontraumatic), other site; J30.2 Other seasonal allergic rhinitis; M62.838 Other muscle spasm; K59.09 Other constipation; M79.7 Fibromyalgia; I10 Essential (primary) hypertension; Z79.899 Other long term (current) drug therapy; Z90.710 Acquired absence of both cervix and uterus; Z98.890 Other specified postprocedural states ==

== ENCOUNTER → 2021-06-18 | Outpatient (CLI) | payer OTHER ==
[2021-06-18 08:10] LABS: BASO # 0.1 10*3/uL (0.0-0.1); BASO % 0.8 % (0.0-1.0); EOS # 0.3 10*3/uL (0.0-0.4); EOS % 4.3 % (1.0-4.0); HEMATOCRIT 46.9 % (37.0-47.0); LYMPH # 2.1 10*3/uL (1.3-4.4); LYMPH % 27.8 % (27.0-41.0); MEAN CELL VOLUME 94.4 fl (81.0-99.0); MEAN CORPUSCULAR HGB 32.2 pg (27.0-31.0); MEAN CORPUSCULAR HGB CONC 34.1 g/dl (33.0-37.0); MEAN PLATELET VOLUME 9.6 fl (9.6-12.3); MONO # 0.9 10*3/uL (0.1-1.0); MONO % 11.6 % (3.0-9.0); NEUT # 4.2 10*3/uL (2.3-7.9); NEUT % 55.1 % (47.0-73.0); PLATELET COUNT AUTOMATED 255 10*3/uL (130-400); RED BLOOD COUNT 4.97 10*6/uL (4.10-5.10); RED CELL DISTRI WIDTH 12.5 % (0-14.5); WHITE BLOOD COUNT 7.5 10*3/uL (4.8-10.8)
[2021-06-18 08:14] LABS: BILIRUBIN Negative (Negative); BLOOD Negative (Negative); CLARITY Clear (Clear); COLOR Yellow (Yellow); GLUCOSE Negative (Negative); KETONE Trace (Negative); LEUKO ESTERASE Negative (Negative); NITRITE Negative (Negative); PH 6.5 (4.5-8.0); SPECIFIC GRAVITY 1.025 (1.001-1.030)
[2021-06-18 08:20] LABS: BACTERIA 1+; EPITHELIAL CELLS 0-2
[2021-06-18 08:24] LABS: CREATININE 1.15 mg/dL (0.55-1.02); POTASSIUM 3.9 mmol/L (3.5-5.1)
== END ==
LOC: LAB 07:53
PROVIDERS: Internal Medicine; ATTEND Internal Medicine
DX: E11.9 Type 2 diabetes mellitus without complications (principal)

== ENCOUNTER → 2021-07-14 | Outpatient (CLI) | payer OTHER | END | disposition home or self-care (01) | LOC: CT 08:50 | PROVIDERS: ATTEND Surgery | DX: K80.20 Calculus of gallbladder without cholecystitis without obstruction (principal) ==

== ENCOUNTER → 2021-08-03 | Day surgery (SDC) | payer OTHER ==
[~2021-08-03] MED LIST changes: +ASPIRIN FOR CHI81 MG PO; +CARAFATE1 G1 PO; +LYRICA300 MG PO; +OXYBUTYNIN5 MG PO; +ZOCOR10 MG PO
[2021-08-03 10:23] VITALS: BP 138/88
[2021-08-03 10:50] VITALS: BP 153/73
[2021-08-03 11:04] VITALS: BP 155/72
[2021-08-03 11:20] VITALS: BP 159/76
== END | disposition home or self-care (01) ==
LOC: SDC 07-30 14:00
PROVIDERS: ATTEND Surgery
DX: R14.0 Abdominal distension (gaseous) (principal); K29.50 Unspecified chronic gastritis without bleeding; G51.0 Bell's palsy; M79.7 Fibromyalgia; I10 Essential (primary) hypertension; E11.9 Type 2 diabetes mellitus without complications; F32.9 Major depressive disorder, single episode, unspecified; F17.210 Nicotine dependence, cigarettes, uncomplicated; F41.9 Anxiety disorder, unspecified; Z90.710 Acquired absence of both cervix and uterus; Z90.89 Acquired absence of other organs; Z79.899 Other long term (current) drug therapy

== ENCOUNTER → 2021-08-19 | Outpatient (CLI) | payer OTHER | END | disposition home or self-care (01) | LOC: RESCLI 14:31 | PROVIDERS: ATTEND Internal Medicine | DX: J45.909 Unspecified asthma, uncomplicated (principal); M79.7 Fibromyalgia; I10 Essential (primary) hypertension; F17.210 Nicotine dependence, cigarettes, uncomplicated; Z79.899 Other long term (current) drug therapy; Z71.6 Tobacco abuse counseling; Z79.01 Long term (current) use of anticoagulants; Z79.82 Long term (current) use of aspirin; Z88.8 Allergy status to other drugs, medicaments and biological substances; Z90.710 Acquired absence of both cervix and uterus ==

== ENCOUNTER → 2022-02-12 | Outpatient (CLI) | payer OTHER ==
[2022-02-12 13:36] LABS: BASO # 0.1 10*3/uL (0.0-0.1); BASO % 0.7 % (0.0-1.0); EOS # 0.2 10*3/uL (0.0-0.4); EOS % 2.2 % (1.0-4.0); HEMATOCRIT 47.8 % (37.0-47.0); LYMPH # 1.6 10*3/uL (1.3-4.4); LYMPH % 21.9 % (27.0-41.0); MEAN CELL VOLUME 96.2 fl (81.0-99.0); MEAN CORPUSCULAR HGB CONC 34.3 g/dl (33.0-37.0); MEAN PLATELET VOLUME 9.5 fl (9.6-12.3); MONO # 0.7 10*3/uL (0.1-1.0); MONO % 9.8 % (3.0-9.0); NEUT # 4.7 10*3/uL (2.3-7.9); PLATELET COUNT AUTOMATED 254 10*3/uL (130-400); RED BLOOD COUNT 4.97 10*6/uL (4.10-5.10); RED CELL DISTRI WIDTH 13.2 % (0-14.5); WHITE BLOOD COUNT 7.3 10*3/uL (4.8-10.8)
[2022-02-12 13:57] LABS: ALKALINE PHOSPHATASE 64 U/L (46-116); BUN 17 mg/dl (9-23); CHLORIDE 98 mmol/L (98-107); CHOLESTEROL 176 mg/dL (<200); LDL CHOLESTEROL 66 mg/dL (9-159); SGPT/ALT 20 U/L (10-49); THYROID STIM HORMONE (HS) 1.717 uIU/ml (0.550-4.780); TOTAL PROTEIN 6.7 gm/dL (6.0-8.0); TRIGLYCERIDES 357 mg/dl (<150)
[2022-02-12 14:31] LABS: VITAMIN D, 25-HYDROXY 61.6 ng/mL (30-100)
== END | disposition home or self-care (01) ==
LOC: LAB 13:07
PROVIDERS: ATTEND Internal Medicine
DX: I10 Essential (primary) hypertension (principal); M79.7 Fibromyalgia; Z79.899 Other long term (current) drug therapy

== ENCOUNTER → 2022-05-11 | Outpatient (CLI) | payer OTHER | END | disposition home or self-care (01) | LOC: LAB 09:16 | PROVIDERS: ATTEND Nurse Practitioner Family | DX: N39.0 Urinary tract infection, site not specified (principal) ==

== ENCOUNTER → 2022-06-08 | Outpatient (CLI) | payer OTHER | END | disposition home or self-care (01) | LOC: MAMMO 14:39 | PROVIDERS: ATTEND Internal Medicine | DX: Z12.31 Encounter for screening mammogram for malignant neoplasm of breast (principal); N63.11 Unspecified lump in the right breast, upper outer quadrant ==

== ENCOUNTER → 2022-11-09 | Outpatient (CLI) | payer OTHER | END | disposition home or self-care (01) | LOC: RESCLI 08:02 | PROVIDERS: ATTEND Internal Medicine | DX: I10 Essential (primary) hypertension (principal); M79.7 Fibromyalgia; K59.00 Constipation, unspecified; J45.909 Unspecified asthma, uncomplicated; E11.9 Type 2 diabetes mellitus without complications; G47.00 Insomnia, unspecified; R06.02 Shortness of breath; Z88.8 Allergy status to other drugs, medicaments and biological substances; Z98.890 Other specified postprocedural states; Z79.899 Other long term (current) drug therapy ==

== ENCOUNTER → 2023-02-24 | Outpatient (CLI) | payer OTHER | END | disposition home or self-care (01) | LOC: RESCLI 01:22 | PROVIDERS: ATTEND Family Medicine | DX: G47.00 Insomnia, unspecified (principal); E11.9 Type 2 diabetes mellitus without complications; M79.7 Fibromyalgia; I10 Essential (primary) hypertension; F17.210 Nicotine dependence, cigarettes, uncomplicated; F10.90 Alcohol use, unspecified, uncomplicated; Z79.4 Long term (current) use of insulin; Z79.82 Long term (current) use of aspirin; Z79.899 Other long term (current) drug therapy; Z91.041 Radiographic dye allergy status; Z90.710 Acquired absence of both cervix and uterus; Z98.890 Other specified postprocedural states; Z83.3 Family history of diabetes mellitus; Z80.9 Family history of malignant neoplasm, unspecified ==

== ENCOUNTER → 2023-09-21 | Outpatient (CLI) | payer OTHER | END | disposition home or self-care (01) | LOC: RESCLI 01:48 | PROVIDERS: ATTEND Internal Medicine | DX: I10 Essential (primary) hypertension (principal); F33.0 Major depressive disorder, recurrent, mild; E78.5 Hyperlipidemia, unspecified; M79.7 Fibromyalgia; E66.9 Obesity, unspecified; F41.1 Generalized anxiety disorder; J45.909 Unspecified asthma, uncomplicated; F17.210 Nicotine dependence, cigarettes, uncomplicated; N39.0 Urinary tract infection, site not specified; K29.50 Unspecified chronic gastritis without bleeding; Z98.890 Other specified postprocedural states; Z82.49 Family history of ischemic heart disease and other diseases of the circulatory system; Z88.8 Allergy status to other drugs, medicaments and biological substances; Z79.84 Long term (current) use of oral hypoglycemic drugs; Z79.899 Other long term (current) drug therapy ==

== ENCOUNTER → 2023-09-26 | Outpatient (CLI) | payer OTHER ==
[2023-09-26 12:34] LABS: BASO # 0.1 10*3/uL (0.0-0.1); BASO % 0.9 % (0.0-1.0); EOS # 0.4 10*3/uL (0.0-0.4); EOS % 5.2 % (1.0-4.0); HEMATOCRIT 46.3 % (37.0-47.0); LYMPH # 1.7 10*3/uL (1.3-4.4); LYMPH % 21.7 % (27.0-41.0); MEAN CELL VOLUME 95.5 fl (81.0-99.0); MEAN CORPUSCULAR HGB 32.6 pg (27.0-31.0); MEAN CORPUSCULAR HGB CONC 34.1 g/dl (33.0-37.0); MEAN PLATELET VOLUME 9.1 fl (9.6-12.3); MONO # 0.7 10*3/uL (0.1-1.0); MONO % 9.5 % (3.0-9.0); NEUT # 4.8 10*3/uL (2.3-7.9); NEUT % 62.2 % (47.0-73.0); PLATELET COUNT AUTOMATED 277 10*3/uL (130-400); RED BLOOD COUNT 4.85 10*6/uL (4.10-5.10); RED CELL DISTRI WIDTH 13.1 % (0-14.5); WHITE BLOOD COUNT 7.7 10*3/uL (4.8-10.8)
[2023-09-26 13:17] LABS: ALKALINE PHOSPHATASE 62 U/L (46-116); BUN 8 mg/dl (9-23); CHLORIDE 100 mmol/L (98-107); CHOLESTEROL 109 mg/dL (<200); FREE T4 1.38 ng/dl (0.89-1.76); LDL CHOLESTEROL 23 mg/dL (9-159); SGPT/ALT 18 U/L (5-49); TOTAL PROTEIN 6.5 gm/dL (6.0-8.0); TRIGLYCERIDES 233 mg/dl (<150)
== END | disposition home or self-care (01) ==
LOC: LAB 11:48
PROVIDERS: ATTEND Internal Medicine
DX: I10 Essential (primary) hypertension (principal); E11.9 Type 2 diabetes mellitus without complications

== ENCOUNTER 2024-02-09 04:51 | Emergency (ER) | payer OTHER ==
[~2024-02-09] VITALS: Ht 167.6 cm; Wt 90.7 kg
[2024-02-09] MEDS ORDERED: Phenazopyridine Hydrochlorid2 100 MG TAB PO ONE (05:00)
[2024-02-09 05:05] VITALS: BP 126/69
[2024-02-09 06:07] LABS: BILIRUBIN Negative (Negative); BLOOD Negative (Negative); CLARITY Clear (Clear); COLOR Yellow (Yellow); GLUCOSE Negative (Negative); KETONE Negative (Negative); LEUKO ESTERASE Negative (Negative); NITRITE Negative (Negative); SPECIFIC GRAVITY 1.015 (1.001-1.030); UROBILINOGEN 0.2 E.U./dl (0.0-1.0)
[2024-02-09 06:48] LABS: BACTERIA 1+; RBC 0-2 rbc/hpf (0-2)
[2024-02-09] MEDS ORDERED: Ciprofloxacin Hydrochloride 500 MG TAB PO ONE (06:55)
[2024-02-09] MEDS ORDERED: PYRIDIUM100 MG PO (06:55)
[2024-02-09] MEDS ORDERED: CIPRO500 MG PO (06:55)
== END 2024-02-09 07:01 | disposition home or self-care (01) ==
LOC: ED 04:51
PROVIDERS: Internal Medicine
DX: N39.0 Urinary tract infection, site not specified (principal); M79.7 Fibromyalgia; F17.200 Nicotine dependence, unspecified, uncomplicated; Z90.710 Acquired absence of both cervix and uterus; Z90.89 Acquired absence of other organs; Z98.890 Other specified postprocedural states

== ENCOUNTER → 2024-03-07 | Outpatient (CLI) | payer OTHER ==
[~2024-03-07] MED LIST changes: +CIPRO500 MG PO; +PYRIDIUM100 MG PO
== END | disposition home or self-care (01) ==
LOC: RESCLI 14:30
PROVIDERS: ATTEND Student in an Organized Health Care Education/Training Program
DX: J45.909 Unspecified asthma, uncomplicated (principal); E11.9 Type 2 diabetes mellitus without complications; I10 Essential (primary) hypertension; M79.7 Fibromyalgia; G47.00 Insomnia, unspecified; J01.90 Acute sinusitis, unspecified; E78.5 Hyperlipidemia, unspecified; K29.50 Unspecified chronic gastritis without bleeding; K59.00 Constipation, unspecified; R11.2 Nausea with vomiting, unspecified; Z79.899 Other long term (current) drug therapy; Z79.82 Long term (current) use of aspirin; Z98.890 Other specified postprocedural states; Z88.8 Allergy status to other drugs, medicaments and biological substances

== ENCOUNTER → 2024-03-09 | Outpatient (CLI) | payer OTHER ==
[2024-03-09 13:16] LABS: BILIRUBIN Negative (Negative); BLOOD 2+ (Negative); CLARITY Turbid (Clear); COLOR Yellow (Yellow); GLUCOSE Negative (Negative); KETONE Negative (Negative); LEUKO ESTERASE 3+ (Negative); NITRITE Positive (Negative); PH 5.5 (4.5-8.0); SPECIFIC GRAVITY 1.015 (1.001-1.030); UROBILINOGEN 0.2 E.U./dl (0.0-1.0)
[2024-03-09 13:17] LABS: BASO % 0.3 % (0.0-1.0); EOS % 0.2 % (1.0-4.0); HEMATOCRIT 49.5 % (37.0-47.0); MEAN CELL VOLUME 94.1 fl (81.0-99.0); MEAN CORPUSCULAR HGB 31.9 pg (27.0-31.0); MEAN CORPUSCULAR HGB CONC 33.9 g/dl (33.0-37.0); MEAN PLATELET VOLUME 9.3 fl (9.6-12.3); MONO # 0.5 10*3/uL (0.1-1.0); MONO % 5.3 % (3.0-9.0); NEUT # 8.2 10*3/uL (2.3-7.9); NEUT % 83.6 % (47.0-73.0); PLATELET COUNT AUTOMATED 260 10*3/uL (130-400); RED BLOOD COUNT 5.26 10*6/uL (4.10-5.10); RED CELL DISTRI WIDTH 12.6 % (0-14.5); WHITE BLOOD COUNT 9.9 10*3/uL (4.8-10.8)
[2024-03-09 13:43] LABS: ALKALINE PHOSPHATASE 62 U/L (46-116); BUN 12 mg/dl (9-23); CHLORIDE 99 mmol/L (98-107); CHOLESTEROL 116 mg/dL (<200); LDL CHOLESTEROL 42 mg/dL (9-159); POTASSIUM 3.9 mmol/L (3.4-5.1); SGPT/ALT 17 U/L (5-49); TOTAL PROTEIN 6.7 gm/dL (6.0-8.0); TRIGLYCERIDES 159 mg/dl (<150)
[2024-03-09 14:06] LABS: WBC TNTC wbc/hpf (0-5)
[2024-03-09 14:07] LABS: BACTERIA 3+; EPITHELIAL CELLS 16-20
== END | disposition home or self-care (01) ==
LOC: LAB 12:43
PROVIDERS: ATTEND Family Medicine
DX: E11.9 Type 2 diabetes mellitus without complications (principal)